=== PATIENT | male | born 1990 | race Two or more races ===

== ENCOUNTER 2018-02-03 20:55 | Emergency (ER) | payer MEDICAID ==
[~2018-02-03] VITALS: Ht 180.3 cm; Wt 122.5 kg
[~2018-02-03 20:55] MED LIST: IBU800T
[2018-02-03] MEDS ORDERED: EPINEPHrine HCL 1 MG/1 ML AMP SC ONE (21:45)
[2018-02-03] MEDS ORDERED: methylPREDNISolone SOD SUCC 125 MG/2 ML VL IV ONE (21:45)
[2018-02-03] MEDS ORDERED: diphenhdrAMINE HCL 50 MG/1 ML VL IV ONE (21:45)
[2018-02-03] MEDS ORDERED: SODIUM CHLORIDE 0.9% 1,000 ML IV ONE (21:45)
[2018-02-03] MEDS ORDERED: FAMOTIDINE (10MG/ML) 2ML VL IV ONE (22:00)
[2018-02-04 00:08] VITALS: BP 127/59
== END 2018-02-04 00:25 | disposition home or self-care (01) ==
LOC: ER 20:55
DX: L27.2 Dermatitis due to ingested food (principal); T78.3XXA Angioneurotic edema, initial encounter; Z88.0 Allergy status to penicillin; Z88.2 Allergy status to sulfonamides; Z79.899 Other long term (current) drug therapy
CPT/HCPCS: 96372; 96374; 96375; 99284; J0171; J2930; J3490

== ENCOUNTER 2021-01-09 07:24 | Emergency (ER) | payer MEDICAID ==
[~2021-01-09] VITALS: Ht 182.9 cm; Wt 129.3 kg
[2021-01-09 07:28] VITALS: BP 121/79
[2021-01-09] MEDS ORDERED: cefTRIAXone SOD 1,000 MG VL IM ONE (08:30)
[2021-01-09] MEDS ORDERED: methylPREDNISolone SOD SUCC 125 MG/2 ML VL IM ONE (08:30)
== END 2021-01-09 09:16 | disposition home or self-care (01) ==
LOC: ER 07:24
DX: J03.90 Acute tonsillitis, unspecified (principal); J20.9 Acute bronchitis, unspecified; Z20.822 Contact with and (suspected) exposure to COVID-19
CPT/HCPCS: 36415; 71045; 87426; 96372; 99284; J0696; J2930